=== PATIENT | male | born 1985 | race Caucasian/White ===

== ENCOUNTER 2018-02-21 16:11 | Emergency (ER) | payer SELFPAY ==
--- NOTE | 2018-02-21 16:24 | EDM.PDOC ---
ED HPI GENERAL MEDICAL PROBLEM - General Chief Complaint: Lower Extremity Injury/Pain Stated Complaint: PAIN ANKLE Time Seen by Provider: 02/21/18 16:15 - History of Present Illness INITIAL COMMENTS - FREE TEXT/NARRATIVE: HISTORY AND PHYSICAL: History of present illness: The patient is a healthy 32-year-old male who presents with complaints of right ankle pain that started just prior to arrival after he rolled it while performing calving and he was in moderate and lost his footing. He did not hit his head pass out or black out and has no head neck or back pain and on the right ankle he has swelling and discomfort and more pain with weightbearing but no distal foot or toe pain and no proximal calf leg knee hip or thigh pain. He has no other injuries as a result of this event and prior to this event he was in his usual state of good health with no systemic complaints. He did not take any medications prior to coming here. Is no previous injury to this ankle Review of systems: As per history of present illness and below otherwise all systems reviewed and negative. Past medical history: As per history of present illness and as reviewed below otherwise noncontributory. Surgical history: As per history of present illness and as reviewed below otherwise noncontributory. Social history: No reported history of drug or alcohol abuse. Family history: As per history of present illness and as reviewed below otherwise noncontributory. Physical exam: General: Well-developed well-nourished man who is nontoxic and vital signs are reviewed by me HEENT: Atraumatic, normocephalic, negative for conjunctival pallor or scleral icterus, mucous membranes moist, throat clear, neck supple, nontender, trachea midline. Lungs: Clear to auscultation, breath sounds equal bilaterally, chest nontender. Heart: S1S2, regular rate and rhythm no overt murmurs Abdomen: Soft, nondistended, nontender. NABS. Pelvis: Stable nontender. No lateral hip tenderness on the right Genitourinary: Deferred. Rectal: Deferred. Extremities: Atraumatic with only minimal soft tissue swelling to the lateral aspect of the right ankle with tenderness in this location but no palpable bony deformities or crepitus, the metatarsals are intact without tenderness as are the toes and pulses are intact in the distal foot. There is no erythema or ecchymosis at the ankle and there is no medial tenderness or deformities There is no heel arch tenderness and there is no proximal tib-fib knee thigh or hip tenderness or defects on palpation. Pulses are intact and there is no calf tenderness and the legs are, negative for cords or calf pain. Neurovascular unremarkable. Neuro: Awake, alert, oriented. Cranial nerves II through XII unremarkable. Cerebellum unremarkable. Motor and sensory unremarkable throughout. Exam nonfocal. Diagnostics: X-ray right ankle Therapeutics: Ice pack, patient deferred medication on my initial assessment Cam boot and crutches Impression: Right ankle injury/right ankle sprain Definitive disposition and diagnosis as appropriate pending reevaluation and review of above. Right Ankle Pain Score (Numeric/FACES): 4 - Related Data Allergies Allergy/AdvReac Type Severity Reaction Status Date / Time No Known Allergies Allergy Verified 02/21/18 16:14 Home Meds: Home Meds . [No Known Home Meds] 02/21/18 [History] Review of Systems - Review of Systems Review Of Systems: ROS reveals no pertinent complaints other than HPI. ED EXAM, GENERAL - Physical Exam Exam: See Below (See dictation) Course - Vital Signs Last Recorded V/S: Last Vital Signs Temp 36.6 C 02/21/18 16:17 Pulse 84 02/21/18 16:17 Resp 16 02/21/18 16:17 BP 136/69 02/21/18 16:17 Pulse Ox 98 02/21/18 16:17 - Orders/Labs/Meds Orders: Active Orders 24 hr Category Date Time Status Ankle Min 3V Rt [CR] Stat Exams 02/21/18 16:21 Taken DME for Discharge [COMM] Stat Oth 02/21/18 16:53 Ordered Departure - Departure Time of Disposition: 16:54 Disposition: Home, Self-Care 01 Condition: Good Clinical Impression: Right ankle sprain Qualifiers: Encounter type: initial encounter Involved ligament of ankle: unspecified ligament Qualified Code(s): S93.401A - Sprain of unspecified ligament of right ankle, initial encounter - Discharge Information Forms: ED Department Discharge Additional Instructions: The following information is given to patients seen in the emergency department who are being discharged to home. This information is to outline your options for follow-up care. We provide all patients seen in our emergency department with a follow-up referral. The need for follow-up, as well as the timing and circumstances, are variable depending upon the specifics of your emergency department visit. If you don't have a primary care physician on staff, we will provide you with a referral. We always advise you to contact your personal physician following an emergency department visit to inform them of the circumstance of the visit and for follow-up with them and/or the need for any referrals to a consulting specialist. The emergency department will also refer you to a specialist when appropriate. This referral assures that you have the opportunity for followup care with a specialist. All of these measure are taken in an effort to provide you with optimal care, which includes your followup. Under all circumstances we always encourage you to contact your private physician who remains a resource for coordinating your care. When calling for followup care, please make the office aware that this follow-up is from your recent emergency room visit. If for any reason you are refused follow-up, please contact the [facility] emergency department at and ask to speak to the emergency department charge nurse. [facility]--Orthopedic clinic Professional [address] [address] Ice and elevate the area and wear the boot your given at all times loosening or removing at sleep times. Use crutches for the next 5-7 days even though you're wearing the boot and only touch weight-bear as needed for balance. Please call and schedule a follow-up appointment in our orthopedic clinic using resources given to above. Return to ER as needed and as discussed. Please use [place] you have been prescribed via [employer] at sleep times. - My Orders Last 24 Hours: My Active Orders 02/21/18 16:21 Ankle Min 3V Rt [CR] Stat 02/21/18 16:53 DME for Discharge [COMM] Stat - Assessment/Plan Last 24 Hours: My Active Orders 02/21/18 16:21 Ankle Min 3V Rt [CR] Stat 02/21/18 16:53 DME for Discharge [COMM] Stat
--- NOTE | 2018-02-23 13:17 | CR ---
EXAM DATE: 02/21/18 PATIENT'S AGE: 32 Patient: ISAÍAS SANTANA Facility: [place], [place] Site . Site : 1985 Study: XRay Extremity Right ankle [id number]/[id number] 4:40:40 PM Ordering Physician: Rogerio Delgado Final Report: 3 VIEWS right ankle INDICATION: Injury. IMPRESSION: Of prominent os trigonum or posterior process of the talus normal variation on the lateral view. Mild spurring at the talonavicular. No visualized fracture. Alignments anatomic. Dictated by Jamaal Brooks MD @ Feb 21 2018 4:42PM (Electronic Signature) Report Signed by Proxy. WHIT
== END 2018-02-21 17:35 | disposition home or self-care (01) ==
LOC: MW.ED 16:11
DX: S93.401A Sprain of unspecified ligament of right ankle, initial encounter (principal); X58.XXXA Exposure to other specified factors, initial encounter
CPT/HCPCS: 73610-26-RT; 73610-RT; 99283

== ENCOUNTER 2022-04-11 06:07 | Emergency (ER) | payer OTHER ==
[2022-04-11] MEDS ORDERED: Diazepam 2 MG Tab PO ONE (06:41)
== END 2022-04-11 07:55 | disposition home or self-care (01) ==
LOC: MW.ED 06:07
DX: M54.2 Cervicalgia (principal); Z79.899 Other long term (current) drug therapy; X50.0XXA Overexertion from strenuous movement or load, initial encounter
CPT/HCPCS: 72125; 99283; A9270

== ENCOUNTER 2024-12-28 06:30 | Day surgery (SDC) | payer OTHER ==
[2024-12-28] MEDS ORDERED: fentaNYL 100 MCG/2 ML SDV ONE (06:36)
[2024-12-28] MEDS ORDERED: Ondansetron 4 MG/2 ML SDV ONE ×2 (06:36→09:40)
[2024-12-28] MEDS ORDERED: Morphine 10 MG/ML SDV ONE (06:36)
[2024-12-28] MEDS ORDERED: Dexamethasone 4 MG/ML 5 ML MDV ONE (06:41)
[2024-12-28] MEDS ORDERED: Lidocaine 2% 5 ML SDV ONE (06:41)
[2024-12-28] MEDS ORDERED: propofoL 500 MG/50 ML 50 ML ONE (06:41)
[2024-12-28] MEDS ORDERED: Rocuronium Bromide 50 MG/5 ML Syringe ONE (06:42)
[2024-12-28] MEDS ORDERED: Midazolam 1 MG/ML 2 ML SDV ONE (06:46)
[2024-12-28] MEDS ORDERED: Ropivacaine 0.5% 5 MG/ML 30 ML SDV ONE (06:49)
[2024-12-28] MEDS ORDERED: Bupivacaine 0.25% 30 ML SDV ONE (06:49)
[2024-12-28] MEDS ORDERED: Naloxone 0.4 MG/ML SDV IVPUSH PRN (06:50)
[2024-12-28] MEDS ORDERED: Morphine 2 MG/ML SYRINGE IVPUSH PRN (06:50)
[2024-12-28] MEDS ORDERED: Ondansetron 4 MG/2 ML SDV IVPUSH PRN (06:50)
[2024-12-28] MEDS ORDERED: Albuterol 0.083% 2.5 MG/3 ML Neb Soln NEB PRN (06:50)
[2024-12-28] MEDS ORDERED: Phenylephrine HCl In 0.9% NaCl 1 MG/10 ML Syringe IVPUSH PRN (06:50)
[2024-12-28] MEDS ORDERED: Metoclopramide 10 MG/2 ML SDV IVPUSH PRN (06:50)
[2024-12-28] MEDS ORDERED: HYDROmorphone 1 MG/ML Syringe IVPUSH PRN (06:50)
[2024-12-28] MEDS ORDERED: fentaNYL 50 MCG/ML SDV IVPUSH PRN (06:50)
[2024-12-28] MEDS ORDERED: Sodium Chloride 0.9% 20 ML ONE (06:53)
[2024-12-28] MEDS ORDERED: dexmedeTOMIDine HCl 200 MCG/2 ML SDV ONE (06:53)
[2024-12-28] MEDS ORDERED: Bupivacaine 0.5% 30 ML SDV ONE (06:59)
[2024-12-28] MEDS: Lactated Ringers 1,000 ML IV SCH (07:04)
[2024-12-28] MEDS ORDERED: Bupivacaine 0.5%/EPINEPHrine 1:200,000 30 ML SDV ONE (07:12)
[2024-12-28] MEDS ORDERED: EPINEPHrine 1 MG/1 ML Amp ONE (07:13)
[2024-12-28] MEDS ORDERED: ceFAZolin 2 GM Vial ONE (08:00)
[2024-12-28] MEDS ORDERED: ceFAZolin 2 GM in Sodium Chloride 0.9% 50 ML IV ONE (08:00)
[2024-12-28] MEDS ORDERED: ePHEDrine 50 MG/ML SDV ONE (08:09)
[2024-12-28] MEDS ORDERED: Sugammadex Sodium 200 MG/2 ML VIAL IV ONE (08:31)
[2024-12-28] MEDS ORDERED: Scopalamine 1mg/3day Transdermal Patch ONE (11:16)
== END 2024-12-28 11:30 | disposition home or self-care (01) ==
LOC: MW.SDS 06:30
PROVIDERS: ATTEND Orthopaedic Surgery
DX: M24.112 Other articular cartilage disorders, left shoulder (principal); M24.012 Loose body in left shoulder; S43.432A Superior glenoid labrum lesion of left shoulder, initial encounter; F17.200 Nicotine dependence, unspecified, uncomplicated; Z79.899 Other long term (current) drug therapy
CPT/HCPCS: 29819; 29823; J0665; J0690; J1100; J2003; J2250; J2272; J2405; J2704; J3010; J7120; 01630; 64415; J2795; J3490